=== PATIENT | male | born 1990 | race Caucasian/White ===

== ENCOUNTER 2016-11-25 21:51 | Emergency (ER) | payer BC, OTHER ==
[2016-11-25] MEDS ORDERED: LIDOCAINE VISCOUS 2% 15 ML UDC MM STA (22:55)
[2016-11-25] MEDS ORDERED: MAG HYDROX/AL HYDROX/SIMETH 30 ML UDC PO STA (22:56)
[2016-11-25] MEDS ORDERED: MAG HYDROX/AL HYDROX/SIMETH 30 ML UDC ONE (23:02)
[2016-11-25] MEDS ORDERED: LIDOCAINE VISCOUS 2% 15 ML UDC MM ONE (23:02)
[2016-11-26] MEDS ORDERED: POTASSIUM BICARB 25 MEQ TABLET PO STA (00:48)
[2016-11-26] MEDS ORDERED: POTASSIUM BICARB 25 MEQ TABLET PO ONE (00:51)
== END 2016-11-26 01:19 | disposition home or self-care (01) ==
DX: K29.00 Acute gastritis without bleeding (principal); K21.9 Gastro-esophageal reflux disease without esophagitis
CPT/HCPCS: 36415; 80053; 81003; 83690; 84484; 85025; 99283; 99284; A9270